=== PATIENT | male | born 1980 | race Caucasian/White ===

== ENCOUNTER 2024-02-18 03:22 | Emergency (ER) | payer BC ==
[~2024-02-18] VITALS: Ht 162.6 cm; Wt 81.2 kg
[2024-02-18 03:32] VITALS: BP_SYST 142; PULSE 82; RESP 18; TEMP 98.4; O2SAT 97
[2024-02-18] MEDS: DOXYCYCLINE HYCLATE 100 MG TABLET PO ONE (03:41)
[2024-02-18] MEDS: predniSONE 20 MG TABLET PO ONE (03:41)
[2024-02-18] MEDS ORDERED: DOXY100C5 PO (03:44)
[2024-02-18] MEDS ORDERED: FEXO180T94 PO (03:44)
[2024-02-18 04:00] VITALS: BP_SYST 142; PULSE 82; RESP 18; TEMP 98.4; O2SAT 97
== END 2024-02-18 04:00 | disposition home or self-care (01) ==
LOC: SED 03:22
DX: R22.32 Localized swelling, mass and lump, left upper limb (principal); T63.481A Toxic effect of venom of other arthropod, accidental (unintentional), initial encounter; Z88.5 Allergy status to narcotic agent; Z88.6 Allergy status to analgesic agent; Y92.89 Other specified places as the place of occurrence of the external cause
CPT/HCPCS: 99283; J7512